=== PATIENT | female | born 1980 | race Caucasian/White ===

== ENCOUNTER 2017-10-29 06:06 | Emergency (ER) | payer MEDICAID ==
[2017-10-29] MEDS ORDERED: NS 1,000 ML IV ONE (06:10)
[2017-10-29] MEDS ORDERED: KETOROLAC 30 MG/1 ML SDV IVP ONE (06:10)
[2017-10-29] MEDS ORDERED: ONDANSETRON 4 MG/2 ML VIAL IVP ONE (06:33)
--- NOTE | 2017-10-29 06:33 | EDPHY ---
H & P Stated Complaint: R abd and flank pain Source: Patient, EMS Exam Limitations: No limitations Time Seen by Provider: 10/29/17 06:09 HPI/ROS: HPI The patient presents with right lower quadrant abdominal and right flank pain which have been present for the last 2 days and have been intermittent though getting progressively worse and now associated with nausea and worse with meals. The pain is aching, moderate in severity. The patient has a history of gastric bypass operation performed in 2010 and also peptic ulcer disease. She is taking a PPI for this. She also has hemorrhoids and history of ovarian cyst as well as kidney stones.. She recently relocated to [place]. She denies any fever. She does not have any dysuria or hematuria. She thinks she has had this pain before. REVIEW OF SYSTEMS 10 systems were reviewed and negative with the exception of the elements mentioned in the history of present illness. PMHx: Status post gastric bypass operation in 2010, peptic ulcer disease, history of hemorrhoids, history of ovarian cysts, history of kidney stones Soc Hx: Recently relocated to [place], denies alcohol or drug use, smokes 5-6 cigarettes daily PHYSICAL General Appearance: Alert, no distress Eyes: Pupils equal and round no pallor or injection ENT, Mouth: Mucous membranes moist Respiratory: There are no retractions, lungs are clear to auscultation Cardiovascular: Regular rate and rhythm Gastrointestinal: Abdomen is soft and tender in the right lower quadrant without rebound or guarding, she has mild right-sided flank tenderness Neurological: A&O, moves all extremities Skin: Warm and dry, no rashes Musculoskeletal: Neck is supple non tender Extremities: symmetrical, full range of motion Psychiatric: Patient is oriented X 3, there is no agitation (RiguzziXi) Constitutional: Initial Vital Signs Temperature (C) 36.6 C 10/29/17 06:11 Heart Rate 73 10/29/17 06:11 Respiratory Rate 18 10/29/17 06:11 Blood Pressure 117/68 10/29/17 06:11 O2 Sat (%) 98 10/29/17 06:11 O2 Delivery Mode Room Air Allergies/Adverse Reactions: No Known Allergies Allergy (Unverified 10/29/17 06:09) Home Medications: Medication Instructions Recorded Protonix 10/29/17 Medical Decision Making Differential Diagnosis: 37-year-old female brought in by ambulance for right flank and right lower quadrant abdominal pain for the last several days associated with nausea. She has a complicated abdominal history with gastric bypass, peptic ulcer disease, hemorrhoids, ovarian cysts, kidney stones. On exam, she is tender in the right lower quadrant of her abdomen. Differential at this time is broad and includes appendicitis, ureterolithiasis, pyelonephritis, internal hernia, perforated gastric ulcer. Plan for IV fluids and medication for pain. I have ordered basic labs and a CT scan. The patient's labs were checked and she does have anemia with a hemoglobin of 8 with a low MC V. I asked her about this than yes she says she does have a history of anemia. She again denies any dark stools. She has very occasional bright red blood from her hemorrhoids. I do not think she is having an active GI bleed. The case will be signed out to the oncoming provider Dr. Queen pending the patient's UA and CT scan results to determine her disposition. (Xi Lamar) Other Provider: [id number] Lamar pending CT scanning urinalysis results. 0800 CT scan of the abdomen pelvis shows a normal appendix, bilateral nonobstructing stones with some constipation. There is a little bit of bladder wall thickening however urinalysis is negative for urinary tract infection. Remainder laboratory studies are unremarkable. Patient is feeling better. Will discharge with follow-up with primary care, return for any concerns. (Ministerio Queen) - Data Points Laboratory Results: Laboratory Results 10/29/17 06:26 10/29/17 06:26 10/29/17 10/29/17 10/29/17 07:30 06:26 06:26 WBC 9.62 10^3/uL H 10^3/uL (3.80-9.50) RBC 4.34 10^6/uL 10^6/uL (4.18-5.33) Hgb 7.9 g/dL L g/dL (12.6-16.3) Hct 28.8 % L % (38.0-47.0) MCV 66.4 fL L fL (81.5-99.8) MCH 18.2 pg L pg (27.9-34.1) MCHC 27.4 g/dL L g/dL (32.4-36.7) RDW 19.7 % H % (11.5-15.2) Plt Count 343 10^3/uL 10^3/uL (150-400) MPV 9.7 fL fL (8.7-11.7) Neut % (Auto) 71.4 % % (39.3-74.2) Lymph % (Auto) 19.1 % % (15.0-45.0) [place] % (Auto) 7.0 % % (4.5-13.0) Eos % (Auto) 2.0 % % (0.6-7.6) Baso % (Auto) 0.2 % L % (0.3-1.7) Nucleat RBC Rel Count 0.0 % % (0.0-0.2) Absolute Neuts (auto) 6.87 10^3/uL H 10^3/uL (1.70-6.50) Absolute Lymphs (auto) 1.84 10^3/uL 10^3/uL (1.00-3.00) Absolute Monos (auto) 0.67 10^3/uL 10^3/uL (0.30-0.80) Absolute Eos (auto) 0.19 10^3/uL 10^3/uL (0.03-0.40) Absolute Basos (auto) 0.02 10^3/uL 10^3/uL (0.02-0.10) Absolute Nucleated RBC 0.00 10^3/uL 10^3/uL (0-0.01) Immature Gran % 0.3 % % (0.0-1.1) Immature Gran # 0.03 10^3/uL 10^3/uL (0.00-0.10) Platelet Estimate ADEQUATE (ADEQ) Polychromasia 1+ H Hypochromasia 1+ H Microcytic Cells 1+ H Target Cells 1+ H Smear Review By Pending Sodium 139 mEq/L mEq/L (135-145) Potassium 4.0 mEq/L mEq/L (3.3-5.0) Chloride 107 mEq/L mEq/L (97-110) Carbon Dioxide 27 mEq/l mEq/l (22-31) Anion Gap 5 mEq/L L mEq/L (8-16) BUN 15 mg/dL mg/dL (7-23) Creatinine 0.7 mg/dL mg/dL (0.6-1.0) Estimated GFR > 60 Glucose 72 mg/dL mg/dL (70-100) Calcium 8.9 mg/dL mg/dL (8.5-10.4) Total Bilirubin 0.2 mg/dL mg/dL (0.1-1.4) Conjugated Bilirubin 0.0 mg/dL mg/dL (0.0-0.5) Unconjugated Bilirubin 0.2 mg/dL mg/dL (0.0-1.1) AST 18 IU/L IU/L (14-46) ALT 20 IU/L IU/L (9-52) Alkaline Phosphatase 55 IU/L IU/L (38-126) Total Protein 5.8 g/dL L g/dL (6.3-8.2) Albumin 3.2 g/dL L g/dL (3.5-5.0) Lipase 197 IU/L IU/L (23-300) Beta HCG, Qual Urine Color YELLOW Urine Appearance CLEAR Urine pH 6.0 (5.0-7.5) Ur Specific [place] 1.035 H (1.002-1.030) Urine Protein NEGATIVE (NEGATIVE) Urine Ketones NEGATIVE (NEGATIVE) Urine Blood NEGATIVE (NEGATIVE) Urine Nitrate NEGATIVE (NEGATIVE) Urine Bilirubin NEGATIVE (NEGATIVE) Urine Urobilinogen 2.0 EU H EU (0.2-1.0) Ur Leukocyte Esterase 1+ H (NEGATIVE) Urine RBC NONE SEEN /hpf /hpf (0-3) Urine WBC 1-3 /hpf /hpf (0-3) Ur Epithelial Cells 1+ /lpf /lpf (NONE-1+) Urine Mucus TRACE /lpf /lpf (NONE-1+) Urine Glucose NEGATIVE (NEGATIVE) 10/29/17 06:20 WBC RBC Hgb Hct MCV MCH MCHC RDW Plt Count MPV Neut % (Auto) Lymph % (Auto) [place] % (Auto) Eos % (Auto) Baso % (Auto) Nucleat RBC Rel Count Absolute Neuts (auto) Absolute Lymphs (auto) Absolute Monos (auto) Absolute Eos (auto) Absolute Basos (auto) Absolute Nucleated RBC Immature Gran % Immature Gran # Platelet Estimate Polychromasia Hypochromasia Microcytic Cells Target Cells Smear Review By Sodium Potassium Chloride Carbon Dioxide Anion Gap BUN Creatinine Estimated GFR Glucose Calcium Total Bilirubin Conjugated Bilirubin Unconjugated Bilirubin AST ALT Alkaline Phosphatase Total Protein Albumin Lipase Beta HCG, Qual NEGATIVE Urine Color Urine Appearance Urine pH Ur Specific [place] Urine Protein Urine Ketones Urine Blood Urine Nitrate Urine Bilirubin Urine Urobilinogen Ur Leukocyte Esterase Urine RBC Urine WBC Ur Epithelial Cells Urine Mucus Urine Glucose Medications Given: Discontinued Medications Sodium Chloride (Ns) 1,000 mls @ 0 mls/hr IV EDNOW ONE; Wide Open PRN Reason: Protocol Stop: 10/29/17 06:11 Last Admin: 10/29/17 06:41 Dose: 1,000 mls Ketorolac Tromethamine (Toradol) 15 mg IVP EDNOW ONE Stop: 10/29/17 06:11 Last Admin: 10/29/17 06:41 Dose: 15 mg Ondansetron HCl (Zofran) 4 mg IVP EDNOW ONE Stop: 10/29/17 06:34 Last Admin: 10/29/17 06:44 Dose: 4 mg Departure - Departure Disposition: Home, Routine, Self-Care Clinical Impression: RLQ abdominal pain Condition: Good Instructions: Acute Abdominal Pain (ED) Additional Instructions: Please return to the emergency department if your worse in any way. Referrals: [facility],. [Clinic] - As per Instructions
[2017-10-29 06:36] LABS: PLATELET COUNT 343 10^3/uL (150-400)
[2017-10-29] MEDS ORDERED: IOPAMIDOL (ISOVUE-300) 100 ML BTL ONE (06:50)
[2017-10-29 08:11] VITALS: BP 118/72
== END 2017-10-29 08:14 | disposition home or self-care (01) ==
LOC: EDUNIT#
DX: R10.31 Right lower quadrant pain (principal); E86.9 Volume depletion, unspecified; F17.210 Nicotine dependence, cigarettes, uncomplicated; Z98.84 Bariatric surgery status
CPT/HCPCS: 96374; J1885; J2405; Q9967

== ENCOUNTER 2018-08-21 11:49 | Emergency (ER) | payer MEDICAID | END 2018-08-21 14:55 | disposition home or self-care (01) ==